=== PATIENT | male | born 1985 | race Caucasian/White ===

== ENCOUNTER 2017-09-12 00:51 | Emergency (ER) | payer OTHER ==
[~2017-09-12] VITALS: Ht 175.3 cm; Wt 87.5 kg
[~2017-09-12 00:51] MED LIST: CEPH500 PO; HYDACE5 PO; IBUP800 PO; Norco 5-325 Ta1 EACH PO; ONDA8ODT MM; Omeprazole20 M1 PO; SERT50 PO
== END 2017-09-12 02:55 | disposition home or self-care (01) ==
LOC: ER 00:51
DX: S06.9X0A Unspecified intracranial injury without loss of consciousness, initial encounter (principal); Z88.0 Allergy status to penicillin; F17.200 Nicotine dependence, unspecified, uncomplicated; X58.XXXA Exposure to other specified factors, initial encounter
CPT/HCPCS: 70450; 99284

== ENCOUNTER → 2019-01-26 | Outpatient (CLI) | payer OTHER | END | disposition home or self-care (01) | LOC: LAB EV 12:10 → LAB SHORT 12:10 | DX: R21 Rash and other nonspecific skin eruption (principal) | CPT/HCPCS: 87070; 87205 ==

== ENCOUNTER 2020-08-12 07:46 | Day surgery (SDC) | payer OTHER ==
[~2020-08-12] VITALS: Ht 177.8 cm; Wt 91.2 kg
[~2020-08-12 07:46] MED LIST changes: +HYDPAM25 PO; +Inderal 20 mg T20 MG PO; +LANS15EC PO; +PANT40 PO; +Venlafaxine HC150 MG PO
== END 2020-08-12 10:03 | disposition home or self-care (01) ==
LOC: ORSCSDS 07:46
PROVIDERS: Student in an Organized Health Care Education/Training Program
PROC: 0DB78ZX Excision of Stomach, Pylorus, Via Natural or Artificial Opening Endoscopic, Diagnostic (ICD-10-PCS; principal; 2020-08-12 09:00)
PROC: 0DB98ZX Excision of Duodenum, Via Natural or Artificial Opening Endoscopic, Diagnostic (ICD-10-PCS; principal; 2020-08-12 09:00)
PROC: 0DB58ZX Excision of Esophagus, Via Natural or Artificial Opening Endoscopic, Diagnostic (ICD-10-PCS; principal; 2020-08-12 09:00)
DX: R10.13 Epigastric pain (principal); K21.9 Gastro-esophageal reflux disease without esophagitis; F17.210 Nicotine dependence, cigarettes, uncomplicated; Z79.899 Other long term (current) drug therapy
CPT/HCPCS: 88305; 88342; J2250; J2704; J7120